=== PATIENT | female | born 1995 | race Two or more races ===

== ENCOUNTER 2018-03-09 18:18 | Emergency (ER) | payer OTHER ==
[~2018-03-09] VITALS: Ht 157.5 cm; Wt 67.1 kg
== END 2018-03-09 22:38 | disposition home or self-care (01) ==
LOC: ER 18:18
DX: J32.8 Other chronic sinusitis (principal); J11.1 Influenza due to unidentified influenza virus with other respiratory manifestations; N39.0 Urinary tract infection, site not specified; M54.89 Other dorsalgia

== ENCOUNTER 2019-12-23 13:18 | Emergency (ER) | payer OTHER ==
[~2019-12-23] VITALS: Ht 160 cm; Wt 59.0 kg
== END 2019-12-23 17:16 | disposition home or self-care (01) ==
LOC: ER 13:18
DX: N39.0 Urinary tract infection, site not specified (principal); R30.0 Dysuria